=== PATIENT | female | born 1975 | race Caucasian/White ===

== ENCOUNTER 2016-04-19 16:22 | Emergency (ER) | payer OTHER ==
[2016-04-19] MEDS ORDERED: ACETAMINOPHEN 500 MG 500 MG TAB PO ONE (16:43)
[2016-04-19] MEDS ORDERED: KETOROLAC TROMETHAMINE 30 MG/ML SOL IM ONE (16:43)
[2016-04-19] MEDS ORDERED: CYCLOBENZAPRINE 10 MG TAB PO ONE (16:44)
[2016-04-19 16:47] VITALS: BP 92/62; PULSE 94; RESP 18; TEMP 97.2; O2SAT 99
[2016-04-19] MEDS ORDERED: ACETAMINOPHEN 500 MG 500 MG TAB ONE (16:52)
[2016-04-19] MEDS ORDERED: KETOROLAC TROMETHAMINE 30 MG/ML SOL ONE (16:52)
[2016-04-19] MEDS ORDERED: CYCLOBENZAPRINE 10 MG TAB ONE (16:52)
[2016-04-19] MEDS ORDERED: ONDANSETRON 4 MG ODT BU ONE (17:06)
[2016-04-19] MEDS ORDERED: ONDANSETRON 4 MG ODT ONE (17:09)
== END 2016-04-19 18:20 | disposition home or self-care (01) ==
LOC: ED 16:22
DX: M54.9 Dorsalgia, unspecified (principal)
CPT/HCPCS: 99282 ×2; J1885; 96372; 99283

== ENCOUNTER 2016-09-29 15:37 | Emergency (ER) | payer OTHER ==
[2016-09-29] MEDS ORDERED: ONDANSETRON HCL 4 MG/2 ML SOL IV ONE (15:50)
[2016-09-29] MEDS ORDERED: ONDANSETRON HCL 4 MG/2 ML SOL ONE (15:53)
[2016-09-29 16:06] LABS: ALBUMIN 3.2 gm/dl (3.4-5.0); CALCIUM 8.7 mg/dl (8.5-10.1); POTASSIUM 3.3 mMol/L (3.5-5.1)
[2016-09-29 16:08] LABS: HEMATOCRIT 41 % (35-47); MEAN CORPUSCULAR HGB CONC 34.9 gm/dl (32.0-36.0); MEAN CORPUSCULAR VOLUME 89 fL (81-99)
[2016-09-29 16:24] LABS: ANISOCYTOSIS SLIGHT AMT; BASOPHILS % (MANUAL) 0 % (0-3); EOSINOPHILS % (MANUAL) 0 % (0-9); LYMPHOCYTES % (MANUAL) 10 % (10-50)
[2016-09-29 16:25] LABS: OVALOCYTES OCCASIONAL
[2016-09-29 17:00] LABS: APPEARANCE,URINE Clear; BILIRUBIN,URINE NEGATIVE (NEGATIVE); COLOR,URINE Yellow; GLUCOSE, URINE (UA) NEGATIVE (NEGATIVE); KETONES,URINE NEGATIVE (NEGATIVE); LEUKOCYTE ESTERASE ,URINE NEGATIVE (NEGATIVE); NITRATE,URINE NEGATIVE (NEGATIVE); OCCULT BLOOD,URINE TRACE INTACT (NEG-TRACE); PH,URINE 6.5; UROBILINOGEN,URINE 0.2 (0.2-1.0 EU)
[2016-09-29] MEDS ORDERED: VANCOMYCIN HCL 500 MG PDS 1,000 MG in SODIUM CHLORIDE 0.9% 250 ML 250 ML IV ONE (17:08)
[2016-09-29] MEDS ORDERED: PIPERACILLIN/TAZOBACT 3.375 GM 3.375 GM in SODIUM CHLORIDE 0.9% 100 ML 100 ML IV ONE (17:09)
[2016-09-29 17:10] LABS: RBC,URINE 0-2 (0-3AV/HPF)
[2016-09-29] MEDS ORDERED: VANCOMYCIN HYDROCHLORIDE 500 MG PDS IV ONE (17:10)
[2016-09-29 17:11] LABS: AMPHETAMINES POSITIVE (NEGATIVE); METHADONE NEGATIVE (NEGATIVE); OPIATES(OP13) POSITIVE (NEGATIVE); OXYCODONE(OXY) NEGATIVE (NEGATIVE); PROPOXYPHENE(PPX) NEGATIVE (NEGATIVE); TRICYCLIC ANTIDEPRESSANTS NEGATIVE (NEGATIVE)
[2016-09-29] MEDS ORDERED: ACETAMINOPHEN 500 MG 500 MG TAB PO ONE (17:13)
[2016-09-29] MEDS ORDERED: PIPERACILLIN/TAZOBACT 3.375 GM PDS IV ONE (17:13)
[2016-09-29] MEDS ORDERED: SODIUM CHLORIDE 0.9% FLUSH 10 ML SOL IV PRN (17:15)
[2016-09-29] MEDS ORDERED: ACETAMINOPHEN 500 MG 500 MG TAB ONE (17:16)
[2016-09-29 19:08] VITALS: BP 87/50; PULSE 101; RESP 17; O2SAT 99
[2016-09-29 19:39] VITALS: TEMP 104.4
== END 2016-09-29 17:20 | disposition short-term general hospital (02) ==
LOC: ED 15:37
DX: T40.1X4A Poisoning by heroin, undetermined, initial encounter (principal); A41.9 Sepsis, unspecified organism; I95.2 Hypotension due to drugs
CPT/HCPCS: 99291 ×3; 80053; 80305; 81001; 83605; 85007; 85027; 87040; 93005; J2405; J2543; J3370; 71010

== ENCOUNTER 2018-07-11 17:14 | Emergency (ER) | payer OTHER ==
[2018-07-11 17:40] VITALS: BP 110/74; PULSE 50; RESP 22; TEMP 98.2; O2SAT 91
== END 2018-07-11 18:42 | disposition home or self-care (01) | DRG 203 ==
LOC: ED 17:14
DX: J40 Bronchitis, not specified as acute or chronic (principal); R06.02 Shortness of breath
CPT/HCPCS: 99282

== ENCOUNTER 2018-07-31 01:58 | Emergency (ER) | payer OTHER ==
[2018-07-31] MEDS ORDERED: SODIUM CHLORIDE 0.9% 1000ML 1,000 ML IV SCH ×2 (02:00→02:30)
[2018-07-31] MEDS ORDERED: NALOXONE HYDROCHLORIDE 0.4 MG/ML SOL IV ONE ×3 (02:08→02:09)
[2018-07-31] MEDS ORDERED: ALBUTEROL/IPRATROPIUM 1 VIAL SOL INH ONE ×2 (02:12→02:20)
[2018-07-31] MEDS ORDERED: ALBUTEROL/IPRATROPIUM 1 VIAL SOL ONE ×2 (02:12→02:22)
[2018-07-31 02:20] LABS: BASOPHILS % (AUTO) 1 % (0-3); EOSINOPHILS % (AUTO) 3 % (0-9); HEMATOCRIT 39 % (35-47); LYMPHOCYTES % (AUTO) 43.8 % (10-50); MEAN CORPUSCULAR HEMOGLOBIN 28.8 pg (27.0-32.0); MEAN CORPUSCULAR HGB CONC 33.3 gm/dl (32.0-36.0); MEAN CORPUSCULAR VOLUME 86 fL (81-99); MONOCYTES % (AUTO) 7.8 % (0-12); NEUTROPHILS % (AUTO) 44.7 % (37-80)
[2018-07-31 02:35] LABS: ALBUMIN 3.4 gm/dl (3.4-5.0); ALKALINE PHOSPHATASE 65 IU/L (46-116); ALT 27 IU/L (14-63); AST 32 IU/L (15-37); BILIRUBIN,TOTAL 0.5 mg/dl (0.2-1.0); BLOOD UREA NITROGEN 13 mg/dl (7-18); CARBON DIOXIDE 24.1 mEq/L (21-32); CHLORIDE 107 mMol/L (98-107); CREATININE 1.15 mg/dl (0.60-1.00); GLUCOSE 133 mg/dl (74-106); POTASSIUM 3.2 mMol/L (3.5-5.1); SODIUM 142 mMol/L (136-145); TOTAL PROTEIN 6.7 gm/dl (6.4-8.2)
[2018-07-31] MEDS ORDERED: NALOXONE HYDROCHLORIDE 0.4 MG/ML SOL ONE ×2 (02:35→02:55)
[2018-07-31 02:36] LABS: ACETAMINOPHEN < 2 ug/ml (10-30); ALCOHOL < 0.003 gm/dl (0.000-0.08)
[2018-07-31] MEDS ORDERED: POTASSIUM CHLORIDE 10 MEQ TER PO ONE (03:13)
[2018-07-31 03:17] VITALS: TEMP 98.2
[2018-07-31 03:18] LABS: AMPHETAMINES POSITIVE (NEGATIVE); BARBITUATES NEGATIVE (NEGATIVE); BENZODIAZEPINES POSITIVE (NEGATIVE); CANNABINOL(THC) POSITIVE (NEGATIVE); COCAINE(COC) NEGATIVE (NEGATIVE); METHADONE NEGATIVE (NEGATIVE); METHAMPHETAMINES POSITIVE (NEGATIVE); OPIATES(OPI) NEGATIVE (NEGATIVE); OXYCODONE(OXY) NEGATIVE (NEGATIVE); PROPOXYPHENE(PPX) NEGATIVE (NEGATIVE); TRICYCLIC ANTIDEPRESSANTS NEGATIVE (NEGATIVE)
[2018-07-31 04:35] VITALS: BP 102/68; PULSE 84; RESP 18; O2SAT 96
== END 2018-07-31 04:19 | disposition home or self-care (01) | DRG 918 ==
LOC: ED 01:58
DX: T40.1X4A Poisoning by heroin, undetermined, initial encounter (principal); R06.2 Wheezing; E87.6 Hypokalemia; E11.9 Type 2 diabetes mellitus without complications
CPT/HCPCS: 36415; 71045; 80053; 80305; 80307; 84703; 85025; 93005; 96365; 96366; 96374; 99284; 99285; J2310; A9270-GY